=== PATIENT | male | born 1990 | race Caucasian/White ===

== ENCOUNTER 2016-10-26 08:26 | Emergency (ER) | payer BC ==
[~2016-10-26 08:26] MED LIST: Donnatal Elixir 16.2 MG/5 ML UDCUP ONE
[2016-10-26] MEDS ORDERED: Donnatal Elixir 16.2 MG/5 ML UDCUP ONE (08:55)
[2016-10-26] MEDS ORDERED: Aspirin 325 MG TAB ONE (08:55)
--- NOTE | 2016-10-26 08:56 | RAD ---
PORTABLE AP CHEST: Date: 10/26/16 HISTORY: Chest pain. FINDINGS: Cardiac silhouette and pulmonary vasculature are within normal limits. The lungs are clear. The osse ous structures are intact. IMPRESSION: No acute cardiopulmonary process. POS: [facility]
[2016-10-26] MEDS ORDERED: Lidocaine Viscous Sol 2% 15 ml UD Cup ONE (09:11)
[2016-10-26] MEDS ORDERED: Mag-Al Plus 1200 MG/1200 MG/120 MG/30 ML UDCUP ONE (09:11)
[2016-10-26] MEDS ORDERED: Lorazepam 2 MG/ML VIAL ONE (09:12)
[2016-10-26 09:18] LABS: INR-International Normal Ratio 0.9; PTT 23.5 SEC (22.9-36.1); Prothrombin Time 12.9 SEC (12.0-14.7)
[2016-10-26 09:25] LABS: Hemoglobin 15.8 g/dL (14.0-18.0); Mean Corpuscular HGB CONC 34.2 g/dL (32.0-36.0); Mean Corpuscular Hemoglobin 32.4 pg (27.0-31.0); Mean Corpuscular Volume 94.6 fl (80.0-94.0); Mean Platelet Volume 8.9 fL (7.4-10.4); Platelet Count 176 thou/uL (130-400); RBC Distribution Width 11.3 % (11.5-14.5); Red Blood Cell (RBC) Count 4.87 mill/uL (4.70-6.10); White Blood Cell (WBC) Count 7.1 thou/uL (4.8-10.8)
[2016-10-26 09:32] LABS: ALT (SGPT) 42 U/L (8-55); AST (SGOT) 26 U/L (5-34); Alkaline Phosphatase 47 U/L (40-150); Anion Gap 14 mmol/L (10-20); BUN (Urea Nitrogen) 15 mg/dL (8.9-20.6); Bilirubin, Total 0.6 mg/dL (0.2-1.2); CK (CPK) 120 U/L (30-200); Calc. Creatinine Clearance 0 mL/min (70-130); Calcium 9.1 mg/dL (7.8-10.44); Carbon Dioxide 23 mmol/L (22-29); Chloride 105 mmol/L (98-107); Estimated GFR-MDRD Greater than 90; Globulin 2.5 g/dL (2.4-3.5); Glucose 131 mg/dL (70-105); Potassium 4.3 mmol/L (3.5-5.1); Protein, Total 6.5 g/dL (6.0-8.3); Sodium 138 mmol/L (136-145)
[2016-10-26 09:38] LABS: MDiff Complete? YES; Manual Diff?? YES
[2016-10-26 09:40] LABS: Band 3 % (5-11); Eosinophils 2 % (0-10); Lymphocytes 21 % (21-51); Monocytes 7 % (0-10); Neutrophil 67 % (42-75)
[2016-10-26 09:41] LABS: PLT Morphology Comment Appears Adequate; RBC Morphology Normal
[2016-10-26 09:56] LABS: Bilirubin Negative (Negative); Clarity Hazy (Clear); Glucose, Urine (Dipstick) Negative (Negative); Leukocyte Negative (Negative); Nitrite Negative (Negative); Protein, Urine (Dipstick) Negative (Neg-Trace); Specific Gravity, Urine 1.015 (1.005-1.030); Urobilinogen 0.2 mg/dL (0.2-1.0); pH, Urine 8.5 (5.0-9.0)
[2016-10-26 09:57] LABS: Bacteria/HPF 1+ HPF (None Seen); Blood, Urine Negative (Negative); Crystals/HPF 1+ AMORPH PHOS HPF (Negative); RBC/HPF None Seen HPF (0-3); Squamous Epithelial 0-3 HPF (0-3); WBC/HPF None Seen HPF (0-3)
[2016-10-26 10:01] LABS: Acetaminophen Less than 6.0 mcg/mL (6.0-30.0); Alcohol Less than 10 mg/dL (Less than 10); Salicylate Less than 8.0 mg/dL (15.0-30.0)
[2016-10-26 10:06] LABS: Amphetamine Not Detected (NotDetected); Barbiturates Screen Not Detected (NotDetected); Benzodiazepine Screen Not Detected (NotDetected); Cocaine Metabolite Screen Not Detected (NotDetected); Medtox Control Line Valid? VALID (VALID); Methadone Not Detected (NotDetected); Methamphetamine Not Detected (NotDetected); Opiate Screen Not Detected (NotDetected); Oxycodone Screen Not Detected (NotDetected); Phencyclidine (PCP) Not Detected (NotDetected); THC/Cannabinoid Screen Not Detected (NotDetected); Tricyclic Screen Not Detected (NotDetected)
[2016-10-26 10:26] LABS: CKMB 1.1 ng/mL (0-6.6); Troponin I Less than 0.010 ng/mL (< 0.028)
== END 2016-10-26 10:32 | disposition home or self-care (01) ==
LOC: MADERS 08:26
DX: K21.9 Gastro-esophageal reflux disease without esophagitis (principal); K44.9 Diaphragmatic hernia without obstruction or gangrene
CPT/HCPCS: 71010; 80053; 80306; 80307; 81001; 82553; 83880; 84484; 85025; 85610; 85730; 87086; 93005; 94760; 96374; J2060